=== PATIENT | male | born 1955 | race Caucasian/White ===

== ENCOUNTER 2016-11-03 09:03 | Day surgery (SDC) | payer MEDICAID ==
[~2016-11-03] VITALS: Ht 177.8 cm; Wt 106.6 kg
[~2016-11-03 09:03] MED LIST: ASPIRIN 81MG TA81 MG PO; CRESTOR10 MG PO; DOCUSATE SODIU100 MG PO; HYDROCHLOROTH12.5 M1 PO; HYDROXYZINE50 MG PO; LISINOPRIL 20MG20 MG PO; METOPROLOL25 MG PO; TAMSULOSIN HYD0.4 MG PO; ZANAFLEX4 MG PO
[2016-11-03 09:28] VITALS: BP 157/102
[2016-11-03 09:39] LABS: AMPHETAMINES/METAMPHETAMINES NEGATIVE ng/mL (<1000)
[2016-11-03 10:13] VITALS: BP 157/102
[2016-11-03 10:14] VITALS: BP 207/110
[2016-11-03 10:32] VITALS: BP 195/114
--- NOTE | 2016-11-03 11:25 | Procedure Note ---
Procedure detail Date of procedure: 11/03/16 Anesthesiologist: Jl Cazares M.D. Complications: None Pre-procedure diagnosis: Degenerative disc disease of lumbar spine with lumbar radiculopathy symptoms Post-procedure diagnosis: Same Indications for procedure: This patient is a pleasant 61-year-old white male with a long-standing history of low back pain as well as bilateral hip and leg pain. He has failed all previous conservative therapy including injections, oral medications and physical therapy. He has seen Dr. Garcia in the past. He is not on any oral narcotics. He presents for intrathecal pump trial today. Procedure detail: Informed consent was obtained and the risk and benefits of the procedure was explained to the patient. The patient was taken to the procedure room. He was placed prone on the procedure table. He was prepped and draped in sterile fashion. C-arm fluoroscopy was used to view the lumbar spine. The skin and subcutaneous tissues were anesthetized using lidocaine. Multiple attempts at accessing the intrathecal space at L4-L5 and L3-L4 were attempted. Patient had increased pain with some shocking symptoms. The intrathecal space was never able to be accessed as we aborted because of increased pain. The patient was neurologically intact after the procedure motor strength of the lower extreme raise was 5 over 5. There is no gross sensory deficit. Patient did have some back pain from the needle sticks however no nerve pain. The procedure was aborted. The patient was given tramadol 100 mg twice day for pain symptoms. Plan and disposition: We will follow-up with this patient in 1 month. We will make an appointment with Dr. Garcia for surgical evaluation and possible surgical placement of intrathecal catheter for pain pump. We did give him tramadol 100 mg twice a day to help with his pain symptoms. at [id number]
== END 2016-11-03 10:50 | disposition home or self-care (01) ==
LOC: PM 09:03
PROVIDERS: Anesthesiology
PROC: 3E0R3BZ Introduction of Anesthetic Agent into Spinal Canal, Percutaneous Approach (ICD-10-PCS; principal; 2016-11-03)
DX: M51.16 Intervertebral disc disorders with radiculopathy, lumbar region (principal)